=== PATIENT | male | born 1940 ===

== ENCOUNTER 2024-10-06 11:46 | Emergency (ER) | payer OTHER ==
[~2024-10-06] VITALS: Ht 175.3 cm; Wt 72.6 kg
[2024-10-06 13:24] LABS: BASO % 0.6 % (0.1-1.2); EOS # 0.22 (0.04-0.54); EOS % 3.2 % (0.7-7.0); HEMATOCRIT 37.9 % (40.1-51.0); HEMOGLOBIN 12.7 g/dL (13.7-17.5); LYMPH # 1.83 (1.18-3.74); LYMPH % 26.7 % (19.3-53.1); MONO # 0.67 (0.24-0.82); MONO % 9.8 % (4.7-12.5); NEUT # 4.09 (1.56-6.13); NEUT % 59.6 % (34.0-71.1); PLATELET COUNT 221 K/uL (163-369); RED BLOOD COUNT 4.23 M/uL (4.63-6.08); RED CELL DISTRIBUTION WIDTH 14.3 % (11.6-14.4)
[2024-10-06 13:44] LABS: INR 1.09; PARTIAL THROMBOPLASTIN TIME 25.8 SECONDS (22.0-34.0); PROTHROMBIN TIME 11.8 SECONDS (9.0-11.5)
[2024-10-06 14:57] LABS: ALBUMIN 3.7 gm/dL (3.4-5.0); BILIRUBIN TOTAL 0.53 mg/dL (0.3-1.2); CALCIUM 9.4 mg/dL (8.5-10.1); CREATININE SERUM 0.82 mg/dL (0.70-1.30); GFR 89.29; GLOBULINA 3.1 G/DL (2.4-3.5); POTASSIUM 4.56 mEq/L (3.5-5.1); TOTAL PROTEIN 6.8 gm/dL (6.4-8.2)
[2024-10-06] MEDS ORDERED: LevETIRAcetam 500 MG/5 ML VIAL IV ONE ×2 (15:15→15:26)
== END 2024-10-06 19:04 | disposition designated cancer center or children's hospital (05) ==
LOC: ER 11:46
PROVIDERS: General Practice
DX: R53.1 Weakness (principal); S06.5XAA Traumatic subdural hemorrhage with loss of consciousness status unknown, initial encounter; I10 Essential (primary) hypertension
CPT/HCPCS: 36415; 70450; 71045; 72125; 72170; 93005; 93041; 96365; 99285; J3490